=== PATIENT | male | born 1935 | race Caucasian/White ===

== ENCOUNTER 2023-11-13 20:32 | Inpatient (IN) | payer MEDICARE, SELFPAY ==
[2023-11-13 20:33] VITALS: BP 107/67; PULSE 110; RESP 16; O2SAT 88; BMI 26.5
--- NOTE | 2023-11-13 20:40 | PC.NURSE ---
pt on bedside youth nutritional monitor
--- NOTE | 2023-11-13 20:51 | XRR_ITS ---
PROCEDURE INFORMATION: Exam: XR Chest Exam date and time: 11/13/2023 9:06 PM Age: 88 years old Clinical indication: Shortness of breath and other: Pain; Additional info: Chest pain TECHNIQUE: Imaging protocol: Radiologic exam of the chest. Views: 1 view. COMPARISON: No relevant prior studies available. FINDINGS: Lungs: Mild atelectasis in the left lung base. The right lung is clear. No consolidation. Pleural spaces: Unremarkable. No pleural effusion. No pneumothorax. Heart/Mediastinum: Unremarkable. No cardiomegaly. Bones/joints: Unremarkable. XR/XR chest 1V portable [id number] IMPRESSION: No acute findings.
--- NOTE | 2023-11-13 20:51 | CTR_ITS ---
PROCEDURE INFORMATION: Exam: CTA Chest With Contrast Exam date and time: 11/13/2023 9:34 PM Age: 88 years old Clinical indication: Chest wall pain; Additional info: Chest pain TECHNIQUE: Imaging protocol: Computed tomographic angiography of the chest with contrast. Exam focused on the arteries. 3D rendering (Not supervised by radiologist): MIP and/or 3D reconstructed images were created by the technologist. Radiation optimization: All CT scans at this facility use at least one of these dose optimization techniques: automated exposure control; mA and/or kV adjustment per patient size (includes targeted exams where dose is matched to clinical indication); or iterative reconstruction. Contrast material: OMNI 350; Contrast volume: 100 ml; Contrast route: INTRAVENOUS (IV); COMPARISON: CR (CHEST, ) 11/13/2023 9:06 PM RADIATION DOSE METRICS: Total DLP (mGy-cm): 494 FINDINGS: Pulmonary arteries: Extensive pulmonary emboli in the distal main right and left pulmonary arteries, lobar, segmental, and subsegmental artery branches. No saddle embolus. Aorta: Unremarkable. No aortic aneurysm. No aortic dissection. Thyroid: 1.3 cm left thyroid nodule. No imaging follow-up is recommended. Lungs: Mild dependent atelectasis in both lungs. Mild interstitial scarring in both lungs. No consolidation. No suspicious nodule. Pleural spaces: Unremarkable. No pneumothorax. No pleural effusion. Heart: The heart size is normal. The RV/LV ratio is 2.0, consistent with elevated right heart pressure. Coronary arteries: Coronary artery calcifications. Lymph nodes: Numerous prominent mediastinal and bilateral hilar lymph nodes. Gallbladder and bile ducts: Cholecystectomy. The bile ducts are normal. Bones/joints: Degenerative spine. Old right rib fractures. No acute fracture. Soft tissues: Unremarkable. Other findings: 1.4 cm nodule posterior to the right liver lobe. CT/CT angio chest PE protcl [id number] IMPRESSION: 1. Extensive bilateral pulmonary emboli. No saddle embolus. 2. Elevated right heart pressure with an RV/LV ratio of 2.0. 3. Numerous prominent mediastinal and bilateral hilar lymph nodes. These could be reactive but an underlying neoplastic process is not excluded. 4. 1.4 cm nodule posterior to the right liver lobe. A neoplastic lesion is not excluded. COMMENTS: Consistent with the [place] [employer]'s Incidental Findings Committee white paper (J Am Bonnie Radiol 2015): In patients aged 35 years and older with an incidental thyroid nodule equal to or greater than 1.[address], MRI or extrathyroidal US, further evaluation with dedicated thyroid US is recommended for patients with normal life expectancy and without comorbidities. For smaller nodules without suspicious features, no further evaluation or follow up is recommended.
--- NOTE | 2023-11-13 20:51 | ECG_ITS ---
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 Measurements Intervals [place] Rate: 106 P: 31 NM: 160 QRS: 9 QRSD: 153 T: -11 QT: 349 QTc: 465 Interpretive Statements SINUS TACHYCARDIA RIGHT BUNDLE BRANCH BLOCK [120+ ms QRS DURATION, UPRIGHT V1, 40+ ms S IN I/aVL/V4/V5/V6] No previous ECG available for comparison Electronically Signed On 11-13-2023 22:05:07 CDT by Liat Orellana M.D. [id number]
[2023-11-13 20:55] VITALS: BP 92/59; PULSE 104; RESP 20; O2SAT 91
[2023-11-13 21:00] VITALS: BP 106/74; PULSE 104; RESP 20; O2SAT 91
--- NOTE | 2023-11-13 21:00 | PC.NURSE ---
Per verbal order from Dr Thomason, will hold aspirin as it was given to pt by EMS. see triage note
[2023-11-13 21:01] LABS: Basophils % 0.3 %; Eosinophils # 0.2 10^3/uL (0.0-0.8); Eosinophils % 2.5 %; Hematocrit 38.6 % (37-53); Lymphocytes % 31.3 %; Mean Corpuscular HGB Conc 32.9 g/dL (30-55); Mean Corpuscular Volume 88.1 fl (82-101); Mean Platelet Volume 8.8 fL (7.4-10.4); Monocytes # 0.4 10^3/uL (0.2-0.9); Monocytes % 6.8 %; Neutrophils # 3.73 10^3/uL (1.8-7.7); Nucleated Red Blood Cells % 0 %; Platelet Count 202 10^3/cmm (157-399); Red Blood Count 4.38 10^6/uL (3.85-5.65); Red Cell Distribution Width 12.9 % (12.1-15.1); White Blood Count 6.43 10^3/uL (3.29-11.43)
[2023-11-13] MEDS: sodium chloride 0.9% 500 ML 999 ML IV (21:03)
[2023-11-13 21:06] LABS: Partial Thromboplastin Time 27.3 SECONDS (23.9-36.7)
[2023-11-13 21:15] LABS: Troponin(5th) Baseline 88 ng/L (0-15)
[2023-11-13 21:22] LABS: Alanine Aminotransferase 13 U/L (0-41); Albumin Level 3.7 g/dL (3.5-5.2); Alkaline Phosphatase 101 U/L (40-130); Anion Gap 15.7 (5-19); Aspartate Amino Transferase 16 U/L (0-40); Blood Urea Nitrogen 18 mg/dL (8-23); Calcium 8.8 mg/dL (8.5-10.5); Carbon Dioxide 24 mmol/L (22-29); Chloride 101 mmol/L (98-107); Creatinine Clr Calc Pharmacy 58.0245; Globulin 4.3 g/dL (1.3-4.6); Glucose 177 mg/dL (65-115); NT Pro B Type Natriuretic Pept 103 pg/mL (0-450); Osmolality Calculated 290 mOsm/kg (285-295); Potassium 3.7 mmol/L (3.5-5.1); Sodium 137 mmol/L (136-145); Total Bilirubin 0.8 mg/dL (0.15-1.2)
--- NOTE | 2023-11-13 21:36 | W.ED.CHESTPA ---
HPI - Chest Pain General: Chief Complaint: Chest Pain Stated Complaint: Stemi Time Seen by Provider: 11/13/23 20:44 History of Present Illness: 88-year-old male presents by EMS chief complaint of STEMI activation apparently the patient has been having some moderate substernal chest pain located left side of his chest recent saw his primary care doctor started on Lasix for right-sided calf swelling upon arrival to the ER STEMI activation was discontinued assessed by Dr. Rodney repair specialist underlying concerns of more probable of pulmonary embolism patient does report some moderate purulent pleuritic chest pain with left-sided in nature as well as with shortness of breath. Patient does not endorse any recent trauma or injury noted to his chest or to his calf patient presents to the emergency department via EMS for further assessment management prior to arrival patient was provided nitroglycerin and aspirin per protocol. Associated symptoms: Deny abdominal pain, dyspnea, fever(s), nausea, palpitations or vomiting Review of Systems General: Reports: 10 or more systems reviewed and unremarkable except in HPI and below Const: Denies: fever(s), chills, fatigue or malaise Eyes: Denies: change in vision or blurry vision Card: Reports: chest pain; Denies: palpitations Resp: Denies: dyspnea or productive cough GI: Denies: abdominal pain, nausea or vomiting : Denies: flank pain Musc: Reports: extremity pain and extremity swelling; Denies: joint swelling Skin/Breast: Denies: rash or pruritus Neuro: Denies: headache(s) Psych: Denies: anxiety or depression William/Lymph: Denies: easy bleeding All/Imm: Denies: urticaria, throat swelling or facial swelling Physical Exam Const: COMMON NORMALS: patient oriented x3 and healthy appearing; apparent distress (Patient appears to be in mild distress nontoxic-appearing) HENMT: COMMON NORMALS: normocephalic and atraumatic HEAD & SCALP: normocephalic and atraumatic Eye: COMMON NORMALS: Equal, round and reactive pupils present and EOMs intact bilaterally PUPIL: Yes Equal, round and reactive pupils present Neck/C-Spine: COMMON NORMALS: full ROM, supple and no JVD Lymph: LYMPHATIC: no lymphadenopathy noted Chest: COMMONS NORMALS: normal inspection of the chest and normal palpation of entire chest wall Resp: COMMON NORMALS: No retractions and clear to auscultation bilaterally; negative for normal respiratory effort (Reduced breath sounds appreciated bilaterally with mild respiratory splinti) EFFORT & INSPECTION: Yes able to speak in complete sentences and Yes symmetric chest movement AUSCULTATION: clear to auscultation bilaterally Cardio: COMMON NORMALS: no JVD, regular rate and regular rhythm RATE: regular rate RHYTHM: regular rhythm GI: COMMON NORMALS: Normal to inspection, nondistended, normoactive bowel sounds present, Soft to palpation and non-tender INSPECTION: Yes normal to inspection PALPATION: Yes Soft to palpation : COMMON NORMALS: Yes no CVA tenderness BLADDER/KIDNEY EXAM: Yes no CVA tenderness Back/Pelvis: COMMON NORMALS: no CVA tenderness Extremity: COMMON NORMALS: normal to inspection and full ROM Neuro: COMMON NORMALS: patient oriented x3, CN's II-XII intact bilaterally, moves all extremities and no focal motor deficits Psych: COMMON NORMALS: mental status grossly normal, Normal thought process present, cooperative and normal affect THOUGHT PROCESS: Normal thought process present Skin: COMMON NORMALS: no rashes or lesions noted GENERAL SKIN EXAM: no rashes or lesions noted Course Vital Signs: Vital signs: Vital Signs Pulse Rate 97 11/13/23 21:49 Respiratory Rate 18 11/13/23 21:49 Blood Pressure 114/73 11/13/23 21:49 Pulse Oximetry 97 11/13/23 21:49 Oxygen Delivery Me thod Nasal Cannula 11/13/23 21:49 Oxygen Flow Rate 4 11/13/23 21:49 MDM - Chest Pain Medical Decision Making Due to patient's symptoms and condition lab work and imaging will be obtained CT imaging of the chest will be obtained to further rule out pulmonary embolism we will continue to follow Patient was found to have bilateral pulmonary embolisms multiple with right heart strain with RV although 2.0 discussed patient's case with Dr. Rodney that agrees with requirement of heparin discussed patient's case with Dr. Dietz on-call doctor for the ICU has granted acceptance patient will be started on Lovenox patient family were updated agreeable to admission. Lab Data 11/13/23 20:45 11/13/23 20:45 Radiology Impressions Chest CTA 11/13/23 20:51 IMPRESSION: 1. Extensive bilateral pulmonary emboli. No saddle embolus. 2. Elevated right heart pressure with an RV/LV ratio of 2.0. 3. Numerous prominent mediastinal and bilateral hilar lymph nodes. These could be reactive but an underlying neoplastic process is not excluded. 4. 1.4 cm nodule posterior to the right liver lobe. A neoplastic lesion is not excluded. COMMENTS: Consistent with the [place] [employer]'s Incidental Findings Committee white paper (J Am Bonnie Radiol 2015): In patients aged 35 years and older with an incidental thyroid nodule equal to or greater than 1.[address], MRI or extrathyroidal US, further evaluation with dedicated thyroid US is recommended for patients with normal life expectancy and without comorbidities. For smaller nodules without suspicious features, no further evaluation or follow up is recommended. ADDENDUM: 11/13/23 2223 THIS REPORT CONTAINS FINDINGS THAT MAY BE CRITICAL TO PATIENT CARE. The findings were verbally communicated via telephone conference with YASMANY MAYS at 10:22 PM CDT on 11/13/2023. The findings were acknowledged and understood. Chest X-Ray 11/13/23 20:51 IMPRESSION: No acute findings. Laboratory Results WBC 6.43 10^3/uL (3.29-11.43) 11/13/23 20:45 RBC 4.38 10^6/uL (3.85-5.65) 11/13/23 20:45 Hgb 12.70 g/dL (11.27-16.99) 11/13/23 20:45 Hct 38.6 % (37-53) 11/13/23 20:45 MCV 88.1 fl (82-101) 11/13/23 20:45 MCH 29.0 pg (27-33) 11/13/23 20:45 MCHC 32.9 g/dL (30-55) 11/13/23 20:45 RDW 12.9 % (12.1-15.1) 11/13/23 20:45 Plt Count 202 10^3/cmm (157-399) 11/13/23 20:45 MPV 8.8 fL (7.4-10.4) 11/13/23 20:45 Neut % (Auto) 58.0 % 11/13/23 20:45 Lymph % (Auto) 31.3 % 11/13/23 20:45 [place] % (Auto) 6.8 % 11/13/23 20:45 Eos % (Auto) 2.5 % 11/13/23 20:45 Baso % (Auto) 0.3 % 11/13/23 20:45 Neut # (Auto) 3.73 10^3/uL (1.8-7.7) 11/13/23 20:45 Lymph # (Auto) 2.0 10^3/uL (0.8-4.8) 11/13/23 20:45 [place] # (Auto) 0.4 10^3/uL (0.2-0.9) 11/13/23 20:45 Eos # (Auto) 0.2 10^3/uL (0.0-0.8) 11/13/23 20:45 Baso # (Auto) 0.0 10^3/uL (0.0-0.1) 11/13/23 20:45 Nucleated RBC % (auto) 0 % 11/13/23 20:45 Nucleated RBCs # 0.0 /100WBC 11/13/23 20:45 APTT 27.3 SECONDS (23.9-36.7) 11/13/23 20:45 Sodium 137 mmol/L (136-145) 11/13/23 20:45 Potassium 3.7 mmol/L (3.5-5.1) 11/13/23 20:45 Chloride 101 mmol/L (98-107) 11/13/23 20:45 Carbon Dioxide 24 mmol/L (22-29) 11/13/23 20:45 Anion Gap 15.7 (5-19) 11/13/23 20:45 BUN 18 mg/dL (8-23) 11/13/23 20:45 Creatinine 1.0 mg/dL (0.7-1.2) 11/13/23 20:45 GFR Calculation Not Reportable 11/13/23 20:45 Glucose 177 mg/dL (65-115) H 11/13/23 20:45 Calculated Osmolality 290 mOsm/kg (285-295) 11/13/23 20:45 Calcium 8.8 mg/dL (8.5-10.5) 11/13/23 20:45 Total Bilirubin 0.8 mg/dL (0.15-1.2) 11/13/23 20:45 AST 16 U/L (0-40) 11/13/23 20:45 ALT 13 U/L (0-41) 11/13/23 20:45 Alkaline Phosphatase 101 U/L (40-130) 11/13/23 20:45 Troponin T Baseline 88 ng/L (0-15) H 11/13/23 20:45 NT-Pro-B Natriuret Pep 103 pg/mL (0-450) 11/13/23 20:45 Total Protein 8.0 g/dL (6.6-8.7) 11/13/23 20:45 Albumin 3.7 g/dL (3.5-5.2) 11/13/23 20:45 Globulin 4.3 g/dL (1.3-4.6) 11/13/23 20:45 All radiology interpretation(s) finalized by discharge Discharge Plan Discharge Condition: Stable Coding Level of Care Code ED Tape Cutter for Liborio Bello
[2023-11-13] MEDS: iohexol 350 mg/mL 500 mL Btl (per mL) IV (21:37)
--- NOTE | 2023-11-13 21:47 | PM.CONSULT ---
Providers/Reason For Consult Consulting Physician/Specialty*: Kevin Mena MD/ Interventional cardiology Reason for Consult*: Chest pain Requesting Physician: Dr Thomason Primary Care Provider: Naveen Drew History of Present Illness History of Present Illness Evelio Crook is a 88 year old male with no prior cardiac history had 2 syncopal episodes today. Also has been having chest pain on the left side. Deep breathing worsens it. EKG showed right bundle branch block. STEMI alert was called from the field. However on my evaluation no evidence of ST elevation seen. Patient is tachycardic. Patient has shortness of breath. Review of Systems General: Reports: 10 or more systems reviewed and unremarkable except in HPI and below Card: Reports: chest pain Resp: Reports: dyspnea Medications/Allergies Allergies Allergy/AdvReac Type Severity Reaction Status Date / Time povidone-iodine Allergy Unknown Verified 11/13/23 20:42 [From Betadine] Sulfa (Sulfonamide Allergy Unknown Verified 11/13/23 20:42 Antibiotics) Vitals/I&O/Wt Last Vital Signs Pulse 104 H 11/13/23 21:00 Resp 20 H 11/13/23 21:00 BP 106/74 11/13/23 21:00 Pulse Ox 91 11/13/23 21:00 O2 Del Method Nasal Cannula 11/13/23 21:00 O2 Flow Rate 4 11/13/23 21:00 Weight last 48 hrs Weight 185 lb Physical Exam Narrative: GENERAL: Patient is alert, awake and oriented x3. [] NECK: No jugular vein distension. [] HEENT: No cyanosis. No icterus. No pallor. [] HEART: Regular S1 and S2. No murmur, rub or gallop. [] LUNGS: Diminished air entry CENTRAL NERVOUS SYSTEM: Grossly nonfocal. [] EXTREMITIES: Lower extremities with 1+ edema bilaterally Data 11/13/23 20:45 11/13/23 20:45 A&P Assessment and plan (1) Chest pain: (2) Syncope: Plan Patient gives limited history however had syncopal episodes and chest pain today. Has minimal chest discomfort now. Pleuritic pain. Also has shortness of breath. He is tachycardic. Has RBBB on ekg. Features are suggestive of possible pulmonary embolism. Will recommend to rule out PE with CTA. No STEMI on EKG Initiate anticoagulation. Trend troponins. If PE not seen and troponin trend up, will plan for coronary angiogram. NPO for now Order echocardiogram Thank you for involving us with care of this patient.We will continue to follow. Please call with questions. Consult Attestations Medical Necessity Statement: Care expected to cross 2 midnights. Coding Level of Care Code Acute Code for [facility] Fwd Diagnoses Chest pain R07.9 Syncope R55
[2023-11-13 21:49] VITALS: BP 114/73; PULSE 97; RESP 18; O2SAT 97
[2023-11-13] MEDS: heparin 5,000 unit/mL INJ 1 mL 4000 UNIT IVP (22:48)
--- NOTE | 2023-11-13 22:51 | ECG_ITS ---
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 Measurements Intervals [place] Rate: 97 P: 38 KS: 182 QRS: 4 QRSD: 143 T: -5 QT: 353 QTc: 449 Interpretive Statements SINUS RHYTHM RIGHT BUNDLE BRANCH BLOCK [120+ ms QRS DURATION, UPRIGHT V1, 40+ ms S IN I/aVL/V4/V5/V6] Compared to ECG 11/13/2023 20:36:43 Sinus tachycardia no longer present Electronically Signed On 11-14-2023 19:15:07 CDT by Liat Orellana M.D. [id number]
--- NOTE | 2023-11-13 22:53 | USR_ITS ---
PROCEDURE INFORMATION: Exam: US Duplex Lower Extremity Veins, Bilateral Exam date and time: 11/13/2023 11:39 PM Age: 88 years old Clinical indication: Other: Pulmonary emboli; Patient HX: No history of dvt per patient. ; Additional info: Pe, evaluate for additional dvt TECHNIQUE: Imaging protocol: Real-time duplex ultrasound of the bilateral extremities with 2-D macdonald scale, color Doppler flow and spectral waveform analysis including responses to compression and other maneuvers (when performed) with image documentation. Complete exam focused on the lower extremity veins. COMPARISON: No relevant prior studies available. FINDINGS: Right deep veins: Right femoral and popliteal vein deep venous thrombosis. Left deep veins: Unremarkable. The common femoral, femoral, proximal profunda femoral and popliteal veins are patent without thrombus. Normal Doppler waveforms. Normal compressibility and/or augmentation response. Superficial veins: Greater saphenous veins at the saphenofemoral junctions are patent bilaterally without thrombus. Soft tissues: Unremarkable. US/[place] [id number] IMPRESSION: Right femoral and popliteal vein deep venous thrombosis.
--- NOTE | 2023-11-13 22:54 | PM.HP ---
Providers/Chief Complaint Primary Care Provider: Naveen Drew Chief Complaint: Stemi History of Present Illness Evelio Crook is a 88 year old male with a past medical history of BPH, hypertension who presented to the emergency room today with chief complaints of chest pain and syncopal episode. 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 Patient has a history of intermittent dizziness for which she takes meclizine at home. He took 2 tablets of meclizine but his symptoms did not improve. Additionally he started developing shortness of breath and chest pain which was worsening with trying to inhale. This brought him to the emergency room. Initially a STEMI was called and patient was evaluated by cardiology. Upon review of EKG by cardiology, EKG changes were determined to be right bundle branch block without any evidence of STEMI. Thereafter he underwent a CTA which revealed bilateral PE a right heart strain. Patient has been started on supplemental oxygen at 3 L/min, at baseline he has no oxygen requirements. States that morphine is currently helping with the pain. Patient has noticed increasing right lower extremity swelling over the last 2 to 3 weeks. Denies any prolonged travel. Most recent travel was to [place], [place] where he was a passenger for 1-1/2 hours. No known history of cancer Review of Systems General: Reports: 10 or more systems reviewed and unremarkable except in HPI and below Const: Denies: fever(s), chills or body aches Eyes: Denies: change in vision, blurry vision or photophobia ENMT: Reports: hoarseness; Denies: throat pain, enlarged tonsils, odynophagia or nasal congestion Card: Denies: chest pain, palpitations, irregular heart rhythm, edema, swelling of feet/ankles, lightheadedness, pre-syncope, dyspnea on exertion or orthopnea Resp: Denies: dyspnea, productive cough, non-productive cough, wheezing, stridor, pain on inspiration, change in phlegm color, hemoptysis or chest congestion GI: Denies: abdominal pain, nausea, vomiting, hematemesis, coffee ground emesis, dysphagia, heartburn, diarrhea, constipation, GI cramping, change in stool character, hematochezia or melena : Denies: flank pain, dysuria, urinary frequency, urinary urgency, urinary hesitancy or hematuria Musc: Denies: neck pain, back pain, extremity pain, joint swelling, joint warmth or deformity Neuro: Denies: headache(s), numbness in extremities, weakness in extremities, sensory changes, difficulty walking, frequent falls, dizziness, vertigo, behavioral changes, Slurred speech present or seizure-like activity Psych: Denies: anxiety, depression, suicidal ideation or homicidal ideation Endo: Denies: polyuria, polydipsia, tired all the time, cold intolerance or hot flashes William/Lymph: Denies: easy bruising or easy bleeding Medications/Allergies Home Medications Medication Instructions Recorded Confirmed Last Taken Type alfuzosin 10 mg tablet,extended 10 mg PO BEDTIME 11/14/23 11/14/23 11/13/23 History release 24 hr amlodipine 2.5 mg tablet 2.5 mg PO DAILY 11/14/23 11/14/23 11/13/23 History finasteride 5 mg tablet 5 mg PO BEDTIME 11/14/23 11/14/23 11/13/23 History furosemide 40 mg tablet 40 mg PO DAILY 11/14/23 11/14/23 11/13/23 History metoprolol succinate 50 mg 50 mg PO DAILY 11/14/23 11/14/23 11/13/23 History tablet,extended release 24 hr nitroglycerin 0.4 mg sublingual See Rx Instructions .Route .COMPLEX 11/14/23 11/14/23 Unknown History tablet Allergies Allergy/AdvReac Type Severity Reaction Status Date / Time povidone-iodine Allergy Unknown Verified 11/13/23 20:42 [From Betadine] Sulfa (Sulfonamide Allergy Unknown Verified 11/13/23 20:42 Antibiotics) Vitals/I&O/Wt Last Vital Signs Pulse 97 11/13/23 21:49 Resp 18 11/13/23 21:49 BP 114/73 11/13/23 21:49 Pulse Ox 97 11/13/23 21:49 O2 Del Method Nasal Cannula 11/13/23 21:49 O2 Flow Rate 4 11/13/23 21:49 11/13/23 11/13/23 11/13/23 06:59 14:59 22:59 Intake Total 500 / 500 Balance 500 / 500 Weight last 48 hrs Weight 83.915 kg Physical Exam Narrative: General: No acute distress, AO x3 HEENT: PERRLA, pupils bilaterally equal and reactive, pallors not present Chest: Scattered crackles to auscultation bilaterally CVS: S1-S2 regular, no murmurs, no tachycardia, no gallops, no rubs Abdomen: Soft, nontender, no organomegaly, bowel sounds present Neuro: No focal deficits, no facial deformity, AO x3, power 5/5 in all limbs Extremities: No edema clubbing or lymphadenopathy Data 11/14/23 02:25 11/14/23 02:25 Other Labs: Radiology Impressions Chest CTA 11/13/23 20:51 IMPRESSION: 1. Extensive bilateral pulmonary emboli. No saddle embolus. 2. Elevated right heart pressure with an RV/LV ratio of 2.0. 3. Numerous prominent mediastinal and bilateral hilar lymph nodes. These could be reactive but an underlying neoplastic process is not excluded. 4. 1.4 cm nodule posterior to the right liver lobe. A neoplastic lesion is not excluded. COMMENTS: Consistent with the [employer]'s Incidental Findings Committee white paper (J Am Bonnie Radiol 2015): In patients aged 35 years and older with an incidental thyroid nodule equal to or greater than 1.[address], MRI or extrathyroidal US, further evaluation with dedicated thyroid US is recommended for patients with normal life expectancy and without comorbidities. For smaller nodules without suspicious features, no further evaluation or follow up is recommended. ADDENDUM: 11/13/23 2223 THIS REPORT CONTAINS FINDINGS THAT MAY BE CRITICAL TO PATIENT CARE. The findings were verbally communicated via telephone conference with YASMANY MAYS at 10:22 PM CDT on 11/13/2023. The findings were acknowledged and understood. Chest X-Ray 11/13/23 20:51 IMPRESSION: No acute findings. Laboratory Results WBC 5.65 10^3/uL (3.29-11.43) 11/14/23 02:25 RBC 4.08 10^6/uL (3.85-5.65) 11/14/23 02:25 Hgb 11.90 g/dL (11.27-16.99) 11/14/23 02:25 Hct 36.2 % (37-53) L 11/14/23 02:25 MCV 88.7 fl (82-101) 11/14/23 02:25 MCH 29.2 pg (27-33) 11/14/23 02:25 MCHC 32.9 g/dL (30-55) 11/14/23 02:25 RDW 13.0 % (12.1-15.1) 11/14/23 02:25 Plt Count 148 10^3/cmm (157-399) L 11/14/23 02:25 MPV 8.9 fL (7.4-10.4) 11/14/23 02:25 Neut % (Auto) 52.6 % 11/14/23 02:25 Lymph % (Auto) 37.0 % 11/14/23 02:25 [place] % (Auto) 5.8 % 11/14/23 02:25 Eos % (Auto) 2.7 % 11/14/23 02:25 Baso % (Auto) 0.5 % 11/14/23 02:25 Neut # (Auto) 2.97 10^3/uL (1.8-7.7) 11/14/23 02:25 Lymph # (Auto) 2.1 10^3/uL (0.8-4.8) 11/14/23 02:25 [place] # (Auto) 0.3 10^3/uL (0.2-0.9) 11/14/23 02:25 Eos # (Auto) 0.2 10^3/uL (0.0-0.8) 11/14/23 02:25 Baso # (Auto) 0.0 10^3/uL (0.0-0.1) 11/14/23 02:25 Nucleated RBC % (auto) 0 % 11/14/23 02:25 Nucleated RBCs # 0.0 /100WBC 11/14/23 02:25 APTT 27.3 SECONDS (23.9-36.7) 11/13/23 20:45 Sodium 137 mmol/L (136-145) 11/14/23 02:25 Potassium 3.6 mmol/L (3.5-5.1) 11/14/23 02:25 Chloride 102 mmol/L (98-107) 11/14/23 02:25 Carbon Dioxide 25 mmol/L (22-29) 11/14/23 02:25 Anion Gap 13.6 (5-19) 11/14/23 02:25 BUN 16 mg/dL (8-23) 11/14/23 02:25 Creatinine 0.9 mg/dL (0.7-1.2) 11/14/23 02:25 GFR Calculation Not Reportable 11/14/23 02:25 Glucose 137 mg/dL (65-115) H 11/14/23 02:25 Calculated Osmolality 287 mOsm/kg (285-295) 11/14/23 02:25 Calcium 8.6 mg/dL (8.5-10.5) 11/14/23 02:25 Total Bilirubin 0.6 mg/dL (0.15-1.2) 11/14/23 02:25 AST 16 U/L (0-40) 11/14/23 02:25 ALT 11 U/L (0-41) 11/14/23 02:25 Alkaline Phosphatase 92 U/L (40-130) 11/14/23 02:25 Troponin T Baseline 88 ng/L (0-15) H 11/13/23 20:45 Troponin T 120 Minute 242.0 ng/L (0-15) H 11/13/23 22:37 Delta Troponin T 154.0 ABS# (0-10) H* 11/13/23 22:37 Troponin T Hi Sens 6Hr 306.5 ng/L (0-15) H 11/14/23 02:25 Troponin T Hi Sens 6Hr Delta 218.5 ng/L (0-12) H* 11/14/23 02:25 NT-Pro-B Natriuret Pep 103 pg/mL (0-450) 11/13/23 20:45 Total Protein 7.4 g/dL (6.6-8.7) 11/14/23 02:25 Albumin 3.1 g/dL (3.5-5.2) L 11/14/23 02:25 Globulin 4.3 g/dL (1.3-4.6) 11/14/23 02:25 Urine Color Yellow (Yellow) 11/14/23 05:50 Urine Appearance Clear (CLEAR) 11/14/23 05:50 Urine pH 5 (5-7) 11/14/23 05:50 Ur Specific [place] 1.010 (1.005-1.030) 11/14/23 05:50 Urine Protein Neg (Negative) 11/14/23 05:50 Urine Glucose (UA) Norm (Normal) 11/14/23 05:50 Urine Ketones Negative (Negative) 11/14/23 05:50 Urine Blood Neg (Negative) 11/14/23 05:50 Urine Nitrate Negative (Negative) 11/14/23 05:50 Urine Bilirubin Neg (Negative) 11/14/23 05:50 Urine Urobilinogen Neg mg/dL (Negative) 11/14/23 05:50 Ur Leukocyte Esterase Negative (Negative) 11/14/23 05:50 A&P Assessment and plan (1) Pulmonary embolism, bilateral: (2) Syncope: (3) Hypoxia: (4) Elevated troponin: (5) Right-sided heart failure: Plan 88-year-old male presenting to the hospital today with 2 to 3 weeks of worsening right lower extremity swelling, chest pain syncope and new hypoxia with oxygen requirement of 3 L/min Initial concern for STEMI, however this was subsequently ruled out by review of EKG by cardiology. CTA of the chest revealed bilateral extensive pulmonary emboli with right heart strain. Echocardiogram has been ordered and pending. Patient started on anticoagulation with Lovenox 1 mg/kg subcutaneously every 12 hours. Elevated troponins, baseline 88, trending up to 240 with a delta of 154 at 2 hours. Pending 6-hour trend. Suspect this is related to right heart strain/failure. Lasix 20 mg IV x 1 now. Further diuresis dependent on clinical response urine output and kidney function. Hold amlodipine given soft blood pressure little ranging between 92-1 09 systolic. Lower extremity Doppler to assess for DVT. Incidentally noted lymphadenopathy on CTA of the chest. May be reactive. Serial follow-up as outpatient. DVT prophylaxis: Currently on full dose Lovenox. DNR/DNI This documentation was created by [employer] electromechanical assembler software. Every effort was made to ensure accuracy of electromechanical assembler. Any obvious errors or omissions should be clarified with the author of the document. Attestations Medical Necessity Statement*: Greater than 2 midnight admission is anticipated for management of pulmonary embolism with right heart strain Diagnoses Pulmonary embolism, bilateral I26.99 Syncope R55 Hypoxia R09.02 Elevated troponin R79.89 Right-sided heart failure I50.810
[2023-11-13 23:30] VITALS: BP 103/73; PULSE 101; RESP 18; O2SAT 96
[2023-11-13] MEDS: enoxaparin 80 mg/0.8 mL Syringe SUBCUT (23:37)
--- NOTE | 2023-11-13 23:39 | PC.NURSE ---
Ultrasound at bedside
[2023-11-13 23:49] VITALS: PULSE 99; RESP 16; O2SAT 96
[2023-11-14] VITALS (10 sets, daily range): BP systolic 100–124; BP diastolic 69–85; PULSE 75–105; RESP 16–92; TEMP 36.5–37.1; O2SAT 95–99
[2023-11-14 02:33] LABS: Basophils % 0.5 %; Eosinophils # 0.2 10^3/uL (0.0-0.8); Eosinophils % 2.7 %; Hematocrit 36.2 % (37-53); Lymphocytes # 2.1 10^3/uL (0.8-4.8); Mean Corpuscular HGB Conc 32.9 g/dL (30-55); Mean Corpuscular Hemoglobin 29.2 pg (27-33); Mean Corpuscular Volume 88.7 fl (82-101); Mean Platelet Volume 8.9 fL (7.4-10.4); Monocytes # 0.3 10^3/uL (0.2-0.9); Monocytes % 5.8 %; Neutrophils # 2.97 10^3/uL (1.8-7.7); Neutrophils % 52.6 %; Nucleated Red Blood Cells % 0 %; Platelet Count 148 10^3/cmm (157-399); Red Blood Count 4.08 10^6/uL (3.85-5.65); White Blood Count 5.65 10^3/uL (3.29-11.43)
[2023-11-14 02:57] LABS: Troponin 5 6HR 306.5 ng/L (0-15); Troponin 5 6HR Delta 218.5 ng/L (0-12)
[2023-11-14 03:07] LABS: Alanine Aminotransferase 11 U/L (0-41); Albumin Level 3.1 g/dL (3.5-5.2); Alkaline Phosphatase 92 U/L (40-130); Anion Gap 13.6 (5-19); Aspartate Amino Transferase 16 U/L (0-40); Blood Urea Nitrogen 16 mg/dL (8-23); Calcium 8.6 mg/dL (8.5-10.5); Carbon Dioxide 25 mmol/L (22-29); Chloride 102 mmol/L (98-107); Creatinine Clr Calc Pharmacy 65.5753; Globulin 4.3 g/dL (1.3-4.6); Glucose 137 mg/dL (65-115); Osmolality Calculated 287 mOsm/kg (285-295); Potassium 3.6 mmol/L (3.5-5.1); Sodium 137 mmol/L (136-145); Total Bilirubin 0.6 mg/dL (0.15-1.2); Total Protein 7.4 g/dL (6.6-8.7)
--- NOTE | 2023-11-14 05:22 | ECG_ITS ---
[facility] Test Date: 2023-11-14 Pat Name: Evelio Crook Department: Room: 112 Gender: Male Manager Metrology: : 1935 Requested By: Miguelito Thomason Order Number: [id number] Leonela MD: Liat Orellana M.D. Measurements Intervals [place] Rate: 94 P: 36 MA: 176 QRS: 5 QRSD: 150 T: -7 QT: 356 QTc: 446 Interpretive Statements SINUS RHYTHM RIGHT BUNDLE BRANCH BLOCK [120+ ms QRS DURATION, UPRIGHT V1, 40+ ms S IN I/aVL/V4/V5/V6] Compared to ECG 11/14/2023 01:15:56 No significant changes Electronically Signed On 11-14-2023 19:15:28 CDT by Liat Orellana M.D. [email or web address]
[2023-11-14] MEDS: morphine 4 mg/mL SDV 1 mL 2 MG IVP (05:51)
[2023-11-14 05:58] LABS: Add Urine Microscopic? NO; Charge for UA Resulting for Rev
[2023-11-14 06:06] LABS: Bilirubin Urine Neg (Negative); Blood Urine Neg (Negative); Glucose Urine UA Norm (Normal); Ketones Urine Negative (Negative); Leukocyte Esterase Urine Negative (Negative); Nitrate Urine Negative (Negative); Protein Urine Neg (Negative); Urine Appearance Clear (CLEAR); Urine Color Yellow (Yellow); Urobilinogen Urine Neg (Negative); pH Urine 5 (5-7)
--- NOTE | 2023-11-14 08:43 | PC.SOCIAL ---
IMM Update Pg. 2 of IMM updated and reviewed with patient, who verbalized understanding. Copy provided.
[2023-11-14] MEDS: aspirin 81 mg EC Tablet PO (08:48)
[2023-11-14] MEDS: FUROsemide 10 mg/mL SDV 2mL 20 MG IVP (08:48)
[2023-11-14] MEDS: pantoprazole DR 40 mg Tablet PO (08:48)
[2023-11-14] MEDS: metoprolol succinate ER (24 HR) 50 mg Tablet PO (08:48)
--- NOTE | 2023-11-14 08:58 | PC.CHAP ---
Pastoral Care Encounter/Spiritual Assessment Type of Contact [] Declined dispatcher relay visit [] Patient/Family/Request visit [] Outpatient visit [] Follow-up visit [] Physician referral [] Code/Alert [] Routine visit [] Staff referral [] Actively dying [] Patient sleeping [] Family support [] [] Out of room [] Palliative care [] [x] Receiving care in room [] Pre-surgical visit [] Trauma [] Long length of stay [] ICU visit [] Other: Relational/Emotional Strength [] Patient feels connected with others/family/visitors/staff [] Distress [] Loneliness/isolation [] Abandonment Spirituality of Patient [] Person of Lucretia [] Attends Synagogue of their Lucretia [] Believes in Prayer [] Reads Bible or Taoist materials [] There are Spiritual issues to be addressed Linen Keeper Interventions [] Prayer [] Active listening [] Non-anxious presence [] Spiritual/emotional support [] Crisis/trauma care [] Spiritual counseling [] Bereavement support [] Provided bereavement packet [] Provided Bible/devotional materials [] Provided toy/stuffed animal, coloring book to patient or family member [] Provided Communion [] Anointing/[place] [] Salvation [] Completed spiritual assessment [] Other: Impact on Illness or Injury [] Angry [] Fearful [] Anxious [] Often cries [] Exhaustion [] Unable to work [] Unable to attend religion [] Unable to walk/stand [] Unable to read [] Unable to drive [] Unable to eat/drink [] Unable to sleep [] Unable to be with family [] Patient intubated [] Other: Summary Time spent with patient
--- NOTE | 2023-11-14 09:40 | CT_ITS ---
WS: [id number] CT ABDOMEN PELVIS TECHNIQUE: Noncontrast CT of the abdomen and pelvis with coronal and sagittal reformatted images. CLINICAL INFORMATION: medistinal lmp node, liver nodule, PE COMPARISON: None. DLP: 592.[address] scans at [facility] use at least one of these dose optimization techniques: automated e xposure control; mA and/or kV adjustment per patient size (includes targeted exams where dose is matc hed to clinical indication); or iterative reconstruction. FINDINGS: Previously described liver nodule along the posterior inferior surface of the RIGHT hepatic lobe has an exophytic appearance measuring 1.3 x 1.0 cm. This is indeterminant on this noncontrast CT and has the same attenuation as the liver. This is not typical for metastatic disease but indeterminate. This can followed up with contrast-enhanced CT abdomen pelvis in 3 months. Slight bibasal atelectasis. Normal GE junction. Air-fluid level in the stomach. Fatty atrophy of the pancreas. Normal noncontrast spleen. Coronary calcification. Adrenal glands are normal. Normal calibe r abdominal aorta. No hydronephrosis in either kidney. Small bilateral renal cysts. Some are too smal l to characterize. Enlarged prostate. Urine distended bladder. Prostate measures 4.8 cm. Sigmoid diverticulosis. No evid ence of small or large bowel obstruction. No periaortic or retroperitoneal lymphadenopathy. Tiny fat-containing umbilical hernia. CT/CT abdomen pelvis wo con [id number] IMPRESSION: 1. Small indeterminate nodule along the dorsal inferior RIGHT hepatic lobe melvi suring 1.0 x 1.3 cm. Recommend 3-month follow-up with contrast-enhanced CT abdo men pelvis. This is nonspecific in appearance and may represent an exophytic li evelyn nodule or small lymph node. This does not appear cystic. 2. Prior cholecystectomy. 3. Small bilateral renal cysts. Some are too small to definitively characteriz e. 4. Enlarged prostate. 5. No other acute findings.
[2023-11-14] MEDS: heparin drip 25,000 UNIT/500 ML PREMIX 25 UNIT IV (10:45)
[2023-11-14 18:10] LABS: Partial Thromboplastin Time 125.2 SECONDS (23.9-36.7)
--- NOTE | 2023-11-14 18:34 | P.PN_ITS ---
Subjective 2 Subjective: Patient was seen this morning, currently on nasal cannula, not in respiratory distress, denies any chest pain, does report shortness of breath but feels significantly better compared to when he was in the ER, he can speak in full sentences without feeling short of breath, no evidence of respiratory distress, no intercostal retractions no suprasternal retractions or nasal flaring, no tachypnea no tachycardia, I did extensive discussion with him about his pulmonary embolism, concerns for right heart strain, we discussed possible consideration of transfer for consideration of thrombectomy procedure, however he does not want to have aggressive interventions he wants to continue medical interventions for now, he tells me that if his condition does deteriorate he is ready to he is ready to meet his Lord, but he does not want to have aggressive interventions done, he is okay with continuing medical inventions such as blood thinners, we did discuss his long-term prognosis of chronic shortness of breath with his bilateral PEs, and right heart strain, he voiced understanding, all questions answered, agreed to proceed with just medical interventions does not want to have aggressive interventions such as thrombectomy, we did discuss his mediastinal and bilateral hilar lymph nodes enlargement, and his nodule in his right liver lobe, will order a CT scan of his abdomen pelvis to rule out malignancy as a possible etiology, Vitals/I&O/Wt Last Vital Signs Temp 97.8 F 11/14/23 16:00 Pulse 78 11/14/23 16:00 Resp 19 H 11/14/23 16:00 BP 107/80 11/14/23 16:00 Pulse Ox 96 11/14/23 16:00 O2 Del Method Nasal Cannula 11/14/23 16:00 O2 Flow Rate 3 11/14/23 05:21 11/14/23 11/14/23 11/14/23 06:59 14:59 22:59 Intake Total 250 / 750 240 / 240 428.333 / 668.333 Balance 250 / 750 240 / 240 428.333 / 668.333 Weight last 48 hrs Weight 87.226 kg Weight 87.226 kg Weight 87.226 kg Weight 83.915 kg Physical Exam 2 Const: COMMON NORMALS: no acute distress and patient oriented x3 Resp: COMMON NORMALS: normal respiratory effort, No retractions and No use of accessory muscles AUSCULTATION: crackles and wheezes Cardio: COMMON NORMALS: regular rate, regular rhythm, S1 normal heart sound present and S2 normal heart sound present RATE: regular rate RHYTHM: r egular rhythm HEART SOUNDS: S1 normal heart sound present and S2 normal heart sound present GI: COMMON NORMALS: Normal to inspection, nondistended, normoactive bowel sounds present and non-tender Extremity: COMMON NORMALS: no pedal edema Neuro: COMMON NORMALS: patient oriented x3 Psych: COMMON NORMALS: mental status grossly normal Data 11/14/23 02:25 11/14/23 02:25 A&P Assessment and plan (1) Pulmonary embolism, bilateral: (2) Syncope: (3) Hypoxia: (4) Elevated troponin: (5) Right-sided heart failure: (6) Acute hypoxic respiratory failure: (7) Mediastinal lymphadenopathy: (8) Right leg DVT: (9) Goals of care, counseling/discussion: Plan 88-year-old male presenting to the hospital today with 2 to 3 weeks of worsening right lower extremity swelling, chest pain syncope and new hypoxia with oxygen requirement of 3 L/min Acute hypoxic respiratory failure ? Secondary extensive bilateral PEs, with evidence of right heart strain CT angiogram of the chest ? CT/CT angio chest PE protcl [id number] IMPRESSION: 1. Extensive bilateral pulmonary emboli. No saddle embolus. 2. Elevated right heart pressure with an RV/LV ratio of 2.0. 3. Numerous prominent mediastinal and bilateral hilar lymph nodes. These could be reactive but an underlying neoplastic process is not excluded. 4. 1.4 cm nodule posterior to the right liver lobe. A neoplastic lesion is not excluded. Cardiac echo CONCLUSIONS Normal left ventricular size and systolic function, EF 70%. No regional wall motion abnormalities. Features of right ventricular strain-dilated right ventricle with a diminished ejection fraction and septal wall motion abnormality Moderate regular regurgitation with estimated PA pressure of around 50 mmHg. No previous study is available for comparison. Venous ultrasound US/[place] [id number] IMPRESSION: Right femoral and popliteal vein deep venous thrombosis. Plan ? Monitor respiratory status closely ? Currently on a heparin drip, will anticoagulate via IV for at least 48 hours before transitioning to Eliquis ? Continue telemetry monitoring ? CT scan abdomen pelvis, ? Will need to follow-up with oncology as outpatient given mediastinal and hilar lymphadenopathy nodule in the right lower lobe ? DNR/DNI ? Heparin drip for DVT prophylaxis ? Spoke to patient, spoke to cardiology, spoke to nursing staff, extensive discussion with patient NSTEMI ? Secondary to bilateral PEs Attestations 2 Medical Necessity Statement*: Patient requires hospitalization, with acute hypoxic respiratory failure secondary extensive bilateral PEs, with right heart strain, NSTEMI Diagnoses Pulmonary embolism, bilateral I26.99 Syncope R55 Hypoxia R09.02 Elevated troponin R79.89 Right-sided heart failure I50.810 Acute hypoxic respiratory failure J96.01 Mediastinal lymphadenopathy R59.0 Right leg DVT I82.401 Goals of care, counseling/discussion Z71.89
[2023-11-14] MEDS: finasteride 5 mg Tablet PO (21:40)
[2023-11-14] MEDS: alfuzosin 10 mg ER Tablet PO (21:40)
--- NOTE | 2023-11-14 22:53 | USCV_ITS ---
Evelio Crook Age: 88 Gender: M : 1935 Exam Date: 11/14/2023 00:10 Ordering Phys: Chasidy Dietz MD Technologist: VERA Exam Location: [facility] [place] Indication: pulmonary emboli. evaluate for RIGHT heart strain. BP: 114 / 73 HR: 93 Rhythm: Atrial fibrillation Technical Quality: Adequate MEASUREMENTS (Male / Female) Normal Values 2D ECHO LV Diastolic Diameter PLAX 3.9 cm 4.2 - 5.9 / 3.9 - 5.3 cm IVS Diastolic Thickness 1.4 cm 0.6 - 1.0 / 0.6 - 0.9 cm IVS Systolic Thickness 1.5 cm LVPW Diastolic Thickness 1.2 cm 0.6 - 1.0 / 0.6 - 0.9 cm LVPW Systolic Thickness 1.8 cm LVOT Diameter 2.3 cm LV Ejection Fraction 2D Teich 60.3 % LV Ejection Fraction MOD 2C 66.0 % LV Ejection Fraction 2C AL 69.6 % LA Diameter 3.8 cm Aorta at Sinotubular Diameter 3.1 cm IVC Diameter 1.3 cm M-MODE LA Ao Ratio MM 1.2 AV Cusp Separation MM 1.8 cm DOPPLER AV Peak Velocity 106.0 cm/s LVOT Peak Velocity 58.0 cm/s AV Area Cont Eq vti 2.6 cm squared AV Area Cont Eq pk 2.3 cm squared MV Peak Velocity 81.0 cm/s MV Area PHT 5.0 cm squared Mitral E to A Ratio 316.0 TV Peak Velocity 285.7 cm/s TR Peak Velocity 294.0 cm/s TR Peak Gradient 34.6 mmHg TV Peak E Velocity 51.0 cm/s Right Atrial Pressure 15.0 mmHg Pulmonary Artery Systolic Pressu 49.6 mmHg PV Peak Velocity 56.0 cm/s FINDINGS Left Ventricle Normal left ventricular size and systolic function, EF 70%. No regional wall motion abnormalities. Right Ventricle Mildly dilated right ventricle with a diffuse hypokinesia. Paradoxical septal motion. Some features of RV strain. Right Atrium Mildly dilated Left Atrium Normal left atrial size. Mitral Valve No gross abnormalities noted Aortic Valve Thickened aortic valve. Tricuspid Valve Moderate tricuspid valve regurgitation. Estimated pulmonary artery peak systolic pressure 50 mmHg Pulmonic Valve Mild pulmonary valve regurgitation. Pericardium Normal pericardium without effusion. Aorta Normal ascending aorta dimension. IVC Normal IVC dimension with <50% respiratory change of the inferior vena cava. CONCLUSIONS Normal left ventricular size and systolic function, EF 70%. No regional wall motion abnormalities. Features of right ventricular strain-dilated right ventricle with a diminished ejection fraction and septal wall motion abnormality Moderate regular regurgitation with estimated PA pressure of around 50 mmHg. No previous study is available for comparison. Dr Liat Orellana MD [facility] (Electronically Signed) Final Date: 14 November 2023 13:28 S
[2023-11-15] VITALS (9 sets, daily range): BP systolic 112–126; BP diastolic 69–82; PULSE 56–80; RESP 18–24; TEMP 36.4–37.1; O2SAT 94–97
[2023-11-15 02:21] LABS: Partial Thromboplastin Time 91.3 SECONDS (23.9-36.7)
[2023-11-15 02:53] LABS: Basophils % 0.5 %; Eosinophils # 0.2 10^3/uL (0.0-0.8); Eosinophils % 3.4 %; Hematocrit 34.7 % (37-53); Lymphocytes # 2.3 10^3/uL (0.8-4.8); Lymphocytes % 40.2 %; Mean Corpuscular HGB Conc 31.7 g/dL (30-55); Mean Corpuscular Hemoglobin 28.7 pg (27-33); Mean Corpuscular Volume 90.6 fl (82-101); Mean Platelet Volume 9.8 fL (7.4-10.4); Monocytes # 0.4 10^3/uL (0.2-0.9); Neutrophils # 2.72 10^3/uL (1.8-7.7); Neutrophils % 46.8 %; Nucleated Red Blood Cells % 0 %; Platelet Count 143 10^3/cmm (157-399); Red Blood Count 3.83 10^6/uL (3.85-5.65); Red Cell Distribution Width 13.3 % (12.1-15.1); White Blood Count 5.82 10^3/uL (3.29-11.43)
[2023-11-15 03:22] LABS: Alanine Aminotransferase 13 U/L (0-41); Albumin Level 3.3 g/dL (3.5-5.2); Alkaline Phosphatase 91 U/L (40-130); Aspartate Amino Transferase 17 U/L (0-40); C Reactive Protein 12.5 mg/L (0.0-4.9); Chloride 104 mmol/L (98-107); Globulin 3.6 g/dL (1.3-4.6); Glucose 169 mg/dL (65-115); Phosphorus 3.4 mg/dL (2.5-4.5); Potassium 3.7 mmol/L (3.5-5.1); Sodium 139 mmol/L (136-145); Total Protein 6.9 g/dL (6.6-8.7)
[2023-11-15 03:39] LABS: NT Pro B Type Natriuretic Pept 1618 pg/mL (0-450)
[2023-11-15 03:41] LABS: Anion Gap 13.7 (5-19); Blood Urea Nitrogen 13 mg/dL (8-23); Calcium 8.6 mg/dL (8.5-10.5); Carbon Dioxide 25 mmol/L (22-29); Creatinine Clr Calc Pharmacy 65.5753; Magnesium 1.9 mg/dL (1.7-2.3); Osmolality Calculated 292 mOsm/kg (285-295); Total Bilirubin 0.6 mg/dL (0.15-1.2)
[2023-11-15] MEDS: heparin drip 25,000 UNIT/500 ML PREMIX 16 UNIT IV (03:53)
[2023-11-15] MEDS: metoprolol succinate ER (24 HR) 50 mg Tablet PO (08:25)
[2023-11-15] MEDS: pantoprazole DR 40 mg Tablet PO (08:25)
[2023-11-15] MEDS: aspirin 81 mg EC Tablet PO (08:25)
[2023-11-15 09:43] LABS: Partial Thromboplastin Time 65.7 SECONDS (23.9-36.7)
--- NOTE | 2023-11-15 10:01 | PC.NURSE ---
ptt 65.7.no change to heparin drip rate
[2023-11-15] MEDS: morphine 4 mg/mL SDV 1 mL 2 MG IVP (11:54)
[2023-11-15] MEDS: acetaminophen 325 mg Tablet 650 MG PO (11:55)
[2023-11-15 12:08] LABS: Glucose Point of Care 116 mg/dL (70-110)
--- NOTE | 2023-11-15 13:34 | P.PN_ITS ---
Subjective 2 Subjective: Patient was seen this morning, family members at bedside, had extensive discussion with patient and family, about his bilateral PEs, right lower extremity DVT, right heart strain, currently is on 2-3 L denying any chest pain, no shortness of breath, Vitals/I&O/Wt Last Vital Signs Temp 98.0 F 11/15/23 11:58 Pulse 64 11/15/23 11:58 Resp 21 H 11/15/23 11:58 BP 112/69 11/15/23 11:58 Pulse Ox 95 11/15/23 07:56 O2 Del Method Nasal Cannula 11/15/23 07:56 O2 Flow Rate 2 11/15/23 03:55 11/14/23 11/15/23 11/15/23 22:59 06:59 14:59 Intake Total 608.333 / 848.333 186 / 1034.333 240 / 240 Balance 608.333 / 848.333 186 / 1034.333 240 / 240 Weight last 48 hrs Weight 88.587 kg Weight 87.226 kg Weight 87.226 kg Weight 87.226 kg Weight 83.915 kg Physical Exam 2 Const: COMMON NORMALS: no acute distress and patient oriented x3 Resp: COMMON NORMALS: normal respiratory effort, No retractions, No use of accessory muscles and clear to auscultation bilaterally AUSCULTATION: clear to auscultation bilaterally Cardio: COMMON NORMALS: regular rate, regular rhythm, S1 normal heart sound present and S2 normal heart sound present RATE: regular rate RHYTHM: r egular rhythm HEART SOUNDS: S1 normal heart sound present and S2 normal heart sound present GI: COMMON NORMALS: Normal to inspection, nondistended, normoactive bowel sounds present and non-tender Extremity: COMMON NORMALS: no pedal edema Neuro: COMMON NORMALS: patient oriented x3 Psych: COMMON NORMALS: mental status grossly normal Data 11/15/23 02:08 11/15/23 02:08 A&P Assessment and plan (1) Pulmonary embolism, bilateral: (2) Syncope: (3) Hypoxia: (4) Elevated troponin: (5) Right-sided heart failure: (6) Acute hypoxic respiratory failure: (7) Mediastinal lymphadenopathy: (8) Right leg DVT: (9) Goals of care, counseling/discussion: Plan 88-year-old male presenting to the hospital today with 2 to 3 weeks of worsening right lower extremity swelling, chest pain syncope and new hypoxia with oxygen requirement of 3 L/min Acute hypoxic respiratory failure ? Secondary extensive bilateral PEs, with evidence of right heart strain CT angiogram of the chest ? CT/CT angio chest PE protcl [id number] IMPRESSION: 1. Extensive bilateral pulmonary emboli. No saddle embolus. 2. Elevated right heart pressure with an RV/LV ratio of 2.0. 3. Numerous prominent mediastinal and bilateral hilar lymph nodes. These could be reactive but an underlying neoplastic process is not excluded. 4. 1.4 cm nodule posterior to the right liver lobe. A neoplastic lesion is not excluded. Cardiac echo CONCLUSIONS Normal left ventricular size and systolic function, EF 70%. No regional wall motion abnormalities. Features of right ventricular strain-dilated right ventricle with a diminished ejection fraction and septal wall motion abnormality Moderate regular regurgitation with estimated PA pressure of around 50 mmHg. No previous study is available for comparison. Venous ultrasound US/[place] [id number] IMPRESSION: Right femoral and popliteal vein deep venous thrombosis. Plan ? Monitor respiratory status closely ? Currently on a heparin drip, will anticoagulate via IV for at least 48 hours before transitioning to Eliquis ? Continue telemetry monitoring ? Will need to follow-up with oncology as outpatient given mediastinal and hilar lymphadenopathy nodule in the right lower lobe ? DNR/DNI ? Heparin drip for DVT prophylaxis ? Spoke to patient, spoke to cardiology, spoke to nursing staff, extensive discussion with patient NSTEMI ? Secondary to bilateral PEs plan for today continue heparin drip, monitor respiratory status, pt/ot Attestations 2 Medical Necessity Statement*: patient requires hospitalization for bilateral pulomnary embolism with right heart strain, resp failure Diagnoses Pulmonary embolism, bilateral I26.99 Syncope R55 Hypoxia R09.02 Elevated troponin R79.89 Right-sided heart failure I50.810 Acute hypoxic respiratory failure J96.01 Mediastinal lymphadenopathy R59.0 Right leg DVT I82.401 Goals of care, counseling/discussion Z71.89
[2023-11-15 16:00] LABS: Partial Thromboplastin Time 51.4 SECONDS (23.9-36.7)
[2023-11-15] MEDS: finasteride 5 mg Tablet PO (20:53)
[2023-11-15] MEDS: alfuzosin 10 mg ER Tablet PO (20:53)
[2023-11-15 23:03] LABS: Partial Thromboplastin Time 93.6 SECONDS (23.9-36.7)
[2023-11-16] VITALS (10 sets, daily range): BP systolic 97–135; BP diastolic 57–85; PULSE 60–79; RESP 16–24; TEMP 36.7–36.9; O2SAT 92–97
[2023-11-16 04:48] LABS: Basophils % 0.4 %; Eosinophils # 0.3 10^3/uL (0.0-0.8); Eosinophils % 5.2 %; Hematocrit 35.2 % (37-53); Lymphocytes % 38.1 %; Mean Corpuscular HGB Conc 32.4 g/dL (30-55); Mean Corpuscular Hemoglobin 28.9 pg (27-33); Mean Corpuscular Volume 89.3 fl (82-101); Monocytes # 0.4 10^3/uL (0.2-0.9); Monocytes % 7.8 %; Neutrophils # 2.41 10^3/uL (1.8-7.7); Neutrophils % 46.8 %; Nucleated Red Blood Cells % 0 %; Platelet Count 150 10^3/cmm (157-399); Red Blood Count 3.94 10^6/uL (3.85-5.65); Red Cell Distribution Width 13.1 % (12.1-15.1); White Blood Count 5.15 10^3/uL (3.29-11.43)
[2023-11-16 05:11] LABS: Alanine Aminotransferase 11 U/L (0-41); Albumin Level 3.1 g/dL (3.5-5.2); Alkaline Phosphatase 89 U/L (40-130); Anion Gap 11.8 (5-19); Aspartate Amino Transferase 15 U/L (0-40); Blood Urea Nitrogen 10 mg/dL (8-23); C Reactive Protein 14.9 mg/L (0.0-4.9); Calcium 8.7 mg/dL (8.5-10.5); Carbon Dioxide 27 mmol/L (22-29); Chloride 101 mmol/L (98-107); Creatinine Clr Calc Pharmacy 59.4261; Globulin 4.1 g/dL (1.3-4.6); Glucose 128 mg/dL (65-115); Osmolality Calculated 283 mOsm/kg (285-295); Phosphorus 3.4 mg/dL (2.5-4.5); Potassium 3.8 mmol/L (3.5-5.1); Sodium 136 mmol/L (136-145); Total Bilirubin 0.5 mg/dL (0.15-1.2); Total Protein 7.2 g/dL (6.6-8.7)
[2023-11-16 05:18] LABS: Partial Thromboplastin Time 86.2 SECONDS (23.9-36.7)
[2023-11-16 05:32] LABS: NT Pro B Type Natriuretic Pept 596 pg/mL (0-450)
[2023-11-16] MEDS: aspirin 81 mg EC Tablet PO (09:26)
[2023-11-16] MEDS: metoprolol succinate ER (24 HR) 50 mg Tablet PO (09:26)
[2023-11-16] MEDS: pantoprazole DR 40 mg Tablet PO (09:26)
[2023-11-16 11:59] LABS: Partial Thromboplastin Time 62.4 SECONDS (23.9-36.7)
--- NOTE | 2023-11-16 12:57 | P.PN_ITS ---
Subjective 2 Subjective: Patient was seen this morning, patient's is at bedside, he does report shortness of breath with exertion, no chest pain, no palpitations, no lightheadedness, no dizziness, is requiring 2 L nasal cannula Vitals/I&O/Wt Last Vital Signs Temp 98.0 F 11/16/23 11:57 Pulse 79 11/16/23 11:57 Resp 17 11/16/23 11:57 BP 107/69 11/16/23 11:57 Pulse Ox 92 11/16/23 11:57 O2 Del Method Nasal Cannula 11/16/23 11:57 O2 Flow Rate 2 11/16/23 08:34 11/15/23 11/16/23 11/16/23 22:59 06:59 14:59 Intake Total 206.667 / 446.667 205.6 / 652.267 Output Total 0 / 0 Balance 206.667 / 446.667 205.6 / 652.267 Weight last 48 hrs Weight 89.766 kg Weight 88.587 kg Physical Exam 2 Const: COMMON NORMALS: no acute distress and patient oriented x3 Resp: COMMON NORMALS: normal respiratory effort, No retractions, No use of accessory muscles and clear to auscultation bilaterally AUSCULTATION: clear to auscultation bilaterally Cardio: COMMON NORMALS: regular rate, regular rhythm, S1 normal heart sound present and S2 normal heart sound present RATE: regular rate RHYTHM: r egular rhythm HEART SOUNDS: S1 normal heart sound present and S2 normal heart sound present GI: COMMON NORMALS: Normal to inspection, nondistended, normoactive bowel sounds present and non-tender Extremity: COMMON NORMALS: no pedal edema Neuro: COMMON NORMALS: patient oriented x3 Psych: COMMON NORMALS: mental status grossly normal Data 11/16/23 04:40 11/16/23 04:40 A&P Assessment and plan (1) Pulmonary embolism, bilateral: (2) Syncope: (3) Hypoxia: (4) Elevated troponin: (5) Right-sided heart failure: (6) Acute hypoxic respiratory failure: (7) Mediastinal lymphadenopathy: (8) Right leg DVT: (9) Goals of care, counseling/discussion: Plan 88-year-old male presenting to the hospital today with 2 to 3 weeks of worsening right lower extremity swelling, chest pain syncope and new hypoxia with oxygen requirement of 3 L/min Acute hypoxic respiratory failure ? Secondary extensive bilateral PEs, with evidence of right heart strain CT angiogram of the chest ? CT/CT angio chest PE protcl [id number] IMPRESSION: 1. Extensive bilateral pulmonary emboli. No saddle embolus. 2. Elevated right heart pressure with an RV/LV ratio of 2.0. 3. Numerous prominent mediastinal and bilateral hilar lymph nodes. These could be reactive but an underlying neoplastic process is not excluded. 4. 1.4 cm nodule posterior to the right liver lobe. A neoplastic lesion is not excluded. Cardiac echo CONCLUSIONS Normal left ventricular size and systolic function, EF 70%. No regional wall motion abnormalities. Features of right ventricular strain-dilated right ventricle with a diminished ejection fraction and septal wall motion abnormality Moderate regular regurgitation with estimated PA pressure of around 50 mmHg. No previous study is available for comparison. Venous ultrasound US/[place] [id number] IMPRESSION: Right femoral and popliteal vein deep venous thrombosis. Plan ? Monitor respiratory status closely ? Currently on a heparin drip, will anticoagulate via IV for at least 48 hours before transitioning to Eliquis ? Continue telemetry monitoring ? Will need to follow-up with oncology as outpatient given mediastinal and hilar lymphadenopathy nodule in the right lower lobe ? DNR/DNI ? Heparin drip for DVT prophylaxis ? Spoke to patient, spoke to cardiology, spoke to nursing staff, extensive discussion with patient NSTEMI ? Secondary to bilateral PEs plan for today will transition off heparin drip potentially this evening, to oral Eliquis, monitor respiratory status closely, PT OT, Attestations 2 Medical Necessity Statement*: Patient requires hospitalization for pulmonary embolism, right-sided heart failure, acute hypoxic respiratory failure Diagnoses Pulmonary embolism, bilateral I26.99 Syncope R55 Hypoxia R09.02 Elevated troponin R79.89 Right-sided heart failure I50.810 Acute hypoxic respiratory failure J96.01 Mediastinal lymphadenopathy R59.0 Right leg DVT I82.401 Goals of care, counseling/discussion Z71.89
[2023-11-16] MEDS: heparin drip 25,000 UNIT/500 ML PREMIX 10 UNIT IV (14:57)
--- NOTE | 2023-11-16 18:12 | PC.NURSE ---
SHIft SUmmary: Uneventful shift. Patient rested in bed for most of the day, but was occaisonally up to the bathroom and to the chair for a few hours. Oriented to person, place, time, and situation remains on heparin, titrated per protocol, latest PTT is pending at the time of this note. baseline is room air at home, still requiring 1-2 Liters nasal cannula.
[2023-11-16 18:34] LABS: Partial Thromboplastin Time 48.5 SECONDS (23.9-36.7)
[2023-11-16] MEDS: finasteride 5 mg Tablet PO (21:10)
[2023-11-16] MEDS: alfuzosin 10 mg ER Tablet PO (21:10)
[2023-11-17] VITALS (11 sets, daily range): BP systolic 118–139; BP diastolic 68–76; PULSE 53–71; RESP 16–20; TEMP 36.5–36.9; O2SAT 92–96
[2023-11-17 01:20] LABS: Partial Thromboplastin Time 63.7 SECONDS (23.9-36.7)
[2023-11-17 05:32] LABS: Basophils % 0.4 %; Eosinophils # 0.2 10^3/uL (0.0-0.8); Eosinophils % 4.1 %; Hematocrit 35.6 % (37-53); Lymphocytes # 2.7 10^3/uL (0.8-4.8); Lymphocytes % 48.3 %; Mean Corpuscular HGB Conc 31.5 g/dL (30-55); Mean Corpuscular Hemoglobin 28.7 pg (27-33); Mean Corpuscular Volume 91.3 fl (82-101); Mean Platelet Volume 9.9 fL (7.4-10.4); Monocytes # 0.4 10^3/uL (0.2-0.9); Monocytes % 6.4 %; Neutrophils # 2.19 10^3/uL (1.8-7.7); Nucleated Red Blood Cells % 0 %; Platelet Count 157 10^3/cmm (157-399); Red Cell Distribution Width 13.3 % (12.1-15.1); White Blood Count 5.61 10^3/uL (3.29-11.43)
[2023-11-17 05:56] LABS: Alanine Aminotransferase 10 U/L (0-41); Albumin Level 3.2 g/dL (3.5-5.2); Alkaline Phosphatase 88 U/L (40-130); Anion Gap 14.1 (5-19); Aspartate Amino Transferase 14 U/L (0-40); Blood Urea Nitrogen 10 mg/dL (8-23); C Reactive Protein 19.4 mg/L (0.0-4.9); Carbon Dioxide 23 mmol/L (22-29); Chloride 107 mmol/L (98-107); Creatinine Clr Calc Pharmacy 66.5127; Globulin 4.2 g/dL (1.3-4.6); Glucose 103 mg/dL (65-115); Magnesium 2.1 mg/dL (1.7-2.3); Osmolality Calculated 289 mOsm/kg (285-295); Phosphorus 3.2 mg/dL (2.5-4.5); Potassium 4.1 mmol/L (3.5-5.1); Sodium 140 mmol/L (136-145); Total Bilirubin 0.6 mg/dL (0.15-1.2); Total Protein 7.4 g/dL (6.6-8.7)
[2023-11-17 06:02] LABS: NT Pro B Type Natriuretic Pept 310 pg/mL (0-450)
[2023-11-17 07:12] LABS: Partial Thromboplastin Time 69.8 SECONDS (23.9-36.7)
[2023-11-17] MEDS: aspirin 81 mg EC Tablet PO (08:30)
[2023-11-17] MEDS: apixaban 5 mg Tablet 10 MG PO (08:30)
[2023-11-17] MEDS: metoprolol succinate ER (24 HR) 50 mg Tablet PO ×2 (08:30)
[2023-11-17] MEDS: pantoprazole DR 40 mg Tablet PO (08:30)
--- NOTE | 2023-11-17 11:43 | PM.DCS ---
Discharge Providers Date of Admission: 11/13/23 23:05 Date of Discharge: November 17, 2023 Attending Provider at Admission: Chasidy Chapman MD Attending Provider at Discharge: Ryan Andres MD Primary Care Provider: Naveen Drew Diagnoses at Discharge Discharge Diagnosis (1) Pulmonary embolism, bilateral: Status: Acute (2) Syncope: Status: Acute (3) Hypoxia: Status: Acute (4) Elevated troponin: Status: Acute (5) Right-sided heart failure: Status: Acute (6) Acute hypoxic respiratory failure: Status: Acute (7) Mediastinal lymphadenopathy: Status: Acute (8) Right leg DVT: Status: Acute (9) Goals of care, counseling/discussion: Status: Acute Reason for Visit Reason for Visit: Stemi Hospital Course Hospital Course Evelio Crook is a 88 year old male with a past medical history of BPH, hypertension who presented to the emergency room today with chief complaints of chest pain and syncopal episode. 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 Patient has a history of intermittent dizziness for which she takes meclizine at home. He took 2 tablets of meclizine but his symptoms did not improve. Additionally he started developing shortness of breath and chest pain which was worsening with trying to inhale. This brought him to the emergency room. Initially a STEMI was called and patient was evaluated by cardiology. Upon review of EKG by cardiology, EKG changes were determined to be right bundle branch block without any evidence of STEMI. Thereafter he underwent a CTA which revealed bilateral PE a right heart strain. Patient has been started on supplemental oxygen at 3 L/min, at baseline he has no oxygen requirements. States that morphine is currently helping with the pain. Patient has noticed increasing right lower extremity swelling over the last 2 to 3 weeks. Denies any prolonged travel. Most recent travel was to [place], [place] where he was a passenger for 1-1/2 hours. No known history of cancer Patient was admitted to [facility] for acute hypoxic respiratory failure, secondary to extensive bilateral pulmonary embolism with evidence of right heart strain, was monitored as inpatient on a heparin drip, cardiology was consulted, patient declined intervention such as thrombectomy for his extensive bilateral PEs, DNR/DNI, he was monitored for over 48 hours on IV heparin, required oxygen therapy, PT OT, overall patient's clinical condition improved, discharged on oxygen therapy, Eliquis therapy with a close follow-up with primary care provider as outpatient. For his right heart strain, please follow-up with cardiology as outpatient, he has an appointment with a president and chief commercial officer in [place] this week. In terms of the etiology behind the extensive pulmonary embolism, he has on CT imaging evidence of mediastinal and bilateral hilar lymph nodes, in addition he has a 1.4 cm nodule in his right liver lobe. Follow-up with Dr. Barksdale within 1 month. - Please take Eliquis 10 mg twice daily for 7 days followed by 5 mg twice daily -Eliquis is a very strong blood thinner, if you develop bloody or black stools or have a significant fall or injury, or feel lightheaded please go immediately to the emergency room ? See your primary care provider in 48 hours to recheck your hemoglobin ? In terms of the etiology behind your pulmonary embolism and your DVT please follow-up with Dr. Barksdale for evaluation of hilar adenopathy ? For your pulmonary embolism, bilaterally in your right heart strain, right ventricular failure, please follow-up with cardiology ? Monitor for chest pain and shortness of breath ? For your right leg DVT monitor for pain and swelling if so go to the emergency room ? If you develop worsening shortness of breath or chest pain or bloody cough please go to the emergency room Physical Exam Const: COMMON NORMALS: no acute distress and patient oriented x3 Resp: COMMON NORMALS: normal respiratory effort, No retractions, No use of accessory muscles and clear to auscultation bilaterally AUSCULTATION: clear to auscultation bilaterally Cardio: COMMON NORMALS: regular rate, regular rhythm, S1 normal heart sound present and S2 normal heart sound present RATE: regular rate RHYTHM: regular rhythm HEART SOUNDS: S1 normal heart sound present and S2 normal heart sound present GI: COMMON NORMALS: Normal to inspection, nondistended, normoactive bowel sounds present and non-tender Extremity: COMMON NORMALS: no pedal edema Neuro: COMMON NORMALS: patient oriented x3 Psych: COMMON NORMALS: mental status grossly normal Discharge Data Studies Completed and Pending Completed Studies During Hospitalization Category Date Time Status CT abdomen pelvis wo con [id number] Stat Cat Scan 11/14/23 09:[address] angio chest PE protcl [id number] Stat Cat Scan 11/13/23 20:51 Completed XR chest 1V portable [id number] Stat Exams 11/13/23 20:51 [place] [id number] Routine Ultrasound 11/13/23 22:53 Completed CV. echo complete* [id number] Routine Ultrasound 11/14/23 22:53 Completed Radiology Impressions Chest CTA 11/13/23 20:51 IMPRESSION: 1. Extensive bilateral pulmonary emboli. No saddle embolus. 2. Elevated right heart pressure with an RV/LV ratio of 2.0. 3. Numerous prominent mediastinal and bilateral hilar lymph nodes. These could be reactive but an underlying neoplastic process is not excluded. 4. 1.4 cm nodule posterior to the right liver lobe. A neoplastic lesion is not excluded. COMMENTS: Consistent with the [place] [employer]'s Incidental Findings Committee white paper (J Am Bonnie Radiol 2015): In patients aged 35 years and older with an incidental thyroid nodule equal to or greater than 1.[address], MRI or extrathyroidal US, further evaluation with dedicated thyroid US is recommended for patients with normal life expectancy and without comorbidities. For smaller nodules without suspicious features, no further evaluation or follow up is recommended. ADDENDUM: 11/13/23 2223 THIS REPORT CONTAINS FINDINGS THAT MAY BE CRITICAL TO PATIENT CARE. The findings were verbally communicated via telephone conference with YASMANY MAYS at 10:22 PM CDT on 11/13/2023. The findings were acknowledged and understood. Chest X-Ray 11/13/23 20:51 IMPRESSION: No acute findings. Venous Duplex 11/13/23 22:53 IMPRESSION: Right femoral and popliteal vein deep venous thrombosis. ADDENDUM: 11/14/23 0147 THIS REPORT CONTAINS FINDINGS THAT MAY BE CRITICAL TO PATIENT CARE. The findings were verbally communicated via telephone conference with CHASIDY CHAPMAN at 1:45 AM CDT on 11/14/2023. The findings were acknowledged and understood. Abdomen/Pelvis CT 11/14/23 09:40 IMPRESSION: 1. Small indeterminate nodule along the dorsal inferior RIGHT hepatic lobe measuring 1.0 x 1.3 cm. Recommend 3-month follow-up with contrast-enhanced CT abdomen pelvis. This is nonspecific in appearance and may represent an exophytic liver nodule or small lymph node. This does not appear cystic. 2. Prior cholecystectomy. 3. Small bilateral renal cysts. Some are too small to definitively characterize. 4. Enlarged prostate. 5. No other acute findings. Laboratory Results WBC 5.61 10^3/uL (3.29-11.43) 11/17/23 04:17 RBC 3.90 10^6/uL (3.85-5.65) 11/17/23 04:17 Hgb 11.20 g/dL (11.27-16.99) L 11/17/23 04:17 Hct 35.6 % (37-53) L 11/17/23 04:17 MCV 91.3 fl (82-101) 11/17/23 04:17 MCH 28.7 pg (27-33) 11/17/23 04:17 MCHC 31.5 g/dL (30-55) 11/17/23 04:17 RDW 13.3 % (12.1-15.1) 11/17/23 04:17 Plt Count 157 10^3/cmm (157-399) 11/17/23 04:17 MPV 9.9 fL (7.4-10.4) 11/17/23 04:17 Neut % (Auto) 39.0 % 11/17/23 04:17 Lymph % (Auto) 48.3 % 11/17/23 04:17 [place] % (Auto) 6.4 % 11/17/23 04:17 Eos % (Auto) 4.1 % 11/17/23 04:17 Baso % (Auto) 0.4 % 11/17/23 04:17 Neut # (Auto) 2.19 10^3/uL (1.8-7.7) 11/17/23 04:17 Lymph # (Auto) 2.7 10^3/uL (0.8-4.8) 11/17/23 04:17 [place] # (Auto) 0.4 10^3/uL (0.2-0.9) 11/17/23 04:17 Eos # (Auto) 0.2 10^3/uL (0.0-0.8) 11/17/23 04:17 Baso # (Auto) 0.0 10^3/uL (0.0-0.1) 11/17/23 04:17 Nucleated RBC % (auto) 0 % 11/17/23 04:17 Nucleated RBCs # 0.0 /100WBC 11/17/23 04:17 APTT 69.8 SECONDS (23.9-36.7) H 11/17/23 06:47 Sodium 140 mmol/L (136-145) 11/17/23 04:17 Potassium 4.1 mmol/L (3.5-5.1) 11/17/23 04:17 Chloride 107 mmol/L (98-107) 11/17/23 04:17 Carbon Dioxide 23 mmol/L (22-29) 11/17/23 04:17 Anion Gap 14.1 (5-19) 11/17/23 04:17 BUN 10 mg/dL (8-23) 11/17/23 04:17 Creatinine 0.9 mg/dL (0.7-1.2) 11/17/23 04:17 GFR Calculation Not Reportable 11/17/23 04:17 Glucose 103 mg/dL (65-115) 11/17/23 04:17 POC Glucose 116 mg/dL (70-110) H 11/15/23 12:05 Calculated Osmolality 289 mOsm/kg (285-295) 11/17/23 04:17 Calcium 9.0 mg/dL (8.5-10.5) 11/17/23 04:17 Phosphorus 3.2 mg/dL (2.5-4.5) 11/17/23 04:17 Magnesium 2.1 mg/dL (1.7-2.3) 11/17/23 04:17 Total Bilirubin 0.6 mg/dL (0.15-1.2) 11/17/23 04:17 AST 14 U/L (0-40) 11/17/23 04:17 ALT 10 U/L (0-41) 11/17/23 04:17 Alkaline Phosphatase 88 U/L (40-130) 11/17/23 04:17 Troponin T Baseline 88 ng/L (0-15) H 11/13/23 20:45 Troponin T 120 Minute 242.0 ng/L (0-15) H 11/13/23 22:37 Delta Troponin T 154.0 ABS# (0-10) H* 11/13/23 22:37 Troponin T Hi Sens 6Hr 306.5 ng/L (0-15) H 11/14/23 02:25 Troponin T Hi Sens 6Hr Delta 218.5 ng/L (0-12) H* 11/14/23 02:25 C-Reactive Protein 19.4 mg/L (0.0-4.9) H 11/17/23 04:17 NT-Pro-B Natriuret Pep 310 pg/mL (0-450) 11/17/23 04:17 Total Protein 7.4 g/dL (6.6-8.7) 11/17/23 04:17 Albumin 3.2 g/dL (3.5-5.2) L 11/17/23 04:17 Globulin 4.2 g/dL (1.3-4.6) 11/17/23 04:17 Urine Color Yellow (Yellow) 11/14/23 05:50 Urine Appearance Clear (CLEAR) 11/14/23 05:50 Urine pH 5 (5-7) 11/14/23 05:50 Ur Specific [place] 1.010 (1.005-1.030) 11/14/23 05:50 Urine Protein Neg (Negative) 11/14/23 05:50 Urine Glucose (UA) Norm (Normal) 11/14/23 05:50 Urine Ketones Negative (Negative) 11/14/23 05:50 Urine Blood Neg (Negative) 11/14/23 05:50 Urine Nitrate Negative (Negative) 11/14/23 05:50 Urine Bilirubin Neg (Negative) 11/14/23 05:50 Urine Urobilinogen Neg mg/dL (Negative) 11/14/23 05:50 Ur Leukocyte Esterase Negative (Negative) 11/14/23 05:50 Vitals Last Vital Signs Temp 97.8 F 11/17/23 07:10 Pulse 56 L 11/17/23 08:00 Resp 16 11/17/23 08:00 BP 139/76 11/17/23 07:10 Pulse Ox 94 11/17/23 10:58 O2 Del Method Nasal Cannula 11/17/23 07:25 O2 Flow Rate 1.5 11/17/23 07:25 Discharge Plan Discharge Patient Disposition: Home Condition: Stable Prescriptions: New Alicia DVT-PE Treat 30D Start 5 mg (74 tabs) tablets,dose pack See Rx Instructions .ROUTE .COMPLEX Qty: 74 0RF Rx Instructions: orally per package directions Continued furosemide 40 mg tablet 40 mg PO DAILY metoprolol succinate 50 mg tablet extended release 24 hr 50 mg PO DAILY nitroglycerin 0.4 mg tablet, sublingual See Rx Instructions .ROUTE .COMPLEX Rx Instructions: DISSOLVE 1 TABLET UNDER THE TONGUE EVERY 5 MINUTES NEEDED FOR CHEST PAIN. DO NOT EXCEED A TOTAL OF 3 DOSES IN 15 MINUTES. alfuzosin 10 mg tablet extended release 24 hr 10 mg PO BEDTIME amlodipine 2.5 mg tablet 2.5 mg PO DAILY finasteride 5 mg tablet 5 mg PO BEDTIME Discharge Orders: Discharge Order (Routine); Ordered 11/17/23 Ordered By: Ryan Andres Referrals: Tawanda Barksdale MD [Hospitalist] - 1 month (hilar adenopathy) Naveen Drew MD [Primary Care Provider] - 1-3 days Discharge Diet: Cardiac Discharge Activity: Resume usual activity Patient Instructions: Apixaban (By mouth) (Eliquis), GI Bleeding, Heart Failure (DC), Pulmonary Embolism (DC), Deep Vein Thrombosis (DC), CHF Stoplight, Opioid Safety Activity Restrictions/Additional Instructions: - Please take Eliquis 10 mg twice daily for 7 days followed by 5 mg twice daily -Eliquis is a very strong blood thinner, if you develop bloody or black stools or have a significant fall or injury, or feel lightheaded please go immediately to the emergency room ? See your primary care provider in 48 hours to recheck your hemoglobin ? In terms of the etiology behind your pulmonary embolism and your DVT please follow-up with Dr. Barksdale for evaluation of hilar adenopathy ? For your pulmonary embolism, bilaterally in your right heart strain, right ventricular failure, please follow-up with cardiology ? Monitor for chest pain and shortness of breath ? For your right leg DVT monitor for pain and swelling if so go to the emergency room ? If you develop worsening shortness of breath or chest pain or bloody cough please go to the emergency room Discharge Attestations Time Spent in Discharge Care*: greater than 30 min Quality Metrics Clinical Quality Measures [ Venous Thromboembolism { Contraindication to Overlap Therapy: Overlap treatment not indicated; VTE Discharge Education: Education about anticoagulant therapy/Care Notes given;}] Coding Level of Care Code 62771 Total time (in minutes) for Discharge: 45 Diagnoses Pulmonary embolism, bilateral I26.99 Syncope R55 Hypoxia R09.02 Elevated troponin R79.89 Right-sided heart failure I50.810 Acute hypoxic respiratory failure J96.01 Mediastinal lymphadenopathy R59.0 Right leg DVT I82.401 Goals of care, counseling/discussion Z71.89
--- NOTE | 2023-11-17 11:58 | PC.SOCIAL ---
IMM Updated Updated pt on IMM. no questions voiced. Provided pt a copy. Initialed, dated, & timed copy in chart.
--- NOTE | 2023-11-17 15:25 | PC.NURSE ---
Discharge Note Patient discharged to [home] via [w/c to POV] accompanied by [his family]. Discharge instructions reviewed with patient and/or advertising account representative. Mobile pharmacy medications and/or prescriptions provided. Belongings/home medications returned.
--- NOTE | 2023-11-17 18:41 | PC.NURSE ---
Received a call from the pt's son and was informed that they were unable to get the eliquis until tomorrow afternoon at their pharmacy. Dr. Andres was notified and will call a script for 4 eliquis ppills to be filled at the [facility] pharmacy in [place]. The pt's son (Eddie) is agreeable and is to go policy change clerks supervisor the pills.
== END 2023-11-17 15:30 | disposition home or self-care (01) | DRG 175 ==
LOC: ER 21:38 → CSU 23:06
PROVIDERS: Admitting Provider Student in an Organized Health Care Education/Training Program; Emergency Provider Emergency Medicine; PCP Family Medicine; Visit Provider Family Medicine
DX: I26.99 Other pulmonary embolism without acute cor pulmonale (principal); J96.01 Acute respiratory failure with hypoxia; I82.431 Acute embolism and thrombosis of right popliteal vein; I82.411 Acute embolism and thrombosis of right femoral vein; R55 Syncope and collapse; I50.810 Right heart failure, unspecified; Z66 Do not resuscitate; R59.1 Generalized enlarged lymph nodes; Z71.89 Other specified counseling; I11.0 Hypertensive heart disease with heart failure
CPT/HCPCS: 36415; 36416; 71045; 71275; 74176; 80053; 81003; 82962; 83735; 83880; 84100; 84484; 85025; 85730; 86140; 93005; 93306; 93970; 94664; 94760; 96372; 96374; 96376; 97165; 99285; J1644; J1650; J1940; J2270; J7040; Q9967